=== PATIENT | male | born 1955 | race Caucasian/White ===

== ENCOUNTER 2018-11-16 04:01 | Inpatient (IN) | payer OTHER, MEDICARE ==
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
[2018-11-16] MEDS ORDERED: MORPHINE SULFATE 10 MG/ML INJ IV ONE (05:42)
[2018-11-16] MEDS ORDERED: ONDANSETRON HCL INJ/PF 4 MG/2 ML SDV IV ONE (05:48)
[2018-11-16] MEDS ORDERED: HYDROMORPHONE HCL INJ/PF 2 MG/ML AMPULE IV ONE (05:48)
[2018-11-16 07:07] LABS: ABSOLUTE BASOPHILS # (AUTO) 0.1 10^3/uL (0.0-0.2); ABSOLUTE EOSINOPHILS # (AUTO) 0.1 10^3/uL (0.0-0.6); ABSOLUTE LYMPHOCYTES (AUTO) 1.9 10^3/uL (0.5-4.7); ABSOLUTE MONOCYTES (AUTO) 0.9 10^3/uL (0.1-1.4); BASOPHILS % (AUTO) 0.7 % (0-2); EOSINOPHILS % (AUTO) 0.5 % (0-6); HEMATOCRIT 39.1 % (37.9-51.0); HEMOGLOBIN 13.1 g/dL (13.5-17.0); MEAN CORPUSCULAR HEMOGLOBIN 31.1 pg (27.0-33.4); MEAN CORPUSCULAR HGB CONC 33.5 g/dL (32.0-36.0); MEAN CORPUSCULAR VOLUME 93 fl (80-97); MONOCYTES % (AUTO) 7.7 % (3-13); PLATELET COUNT 221 10^3/uL (150-450); RED BLOOD COUNT 4.21 10^6/uL (4.35-5.55); RED CELL DISTRIBUTION WIDTH 15.4 % (11.5-14.0); SEGMENTED NEUTROPHILS % (AUTO) 75.1 % (42-78); TOTAL CELLS COUNTED % (AUTO) 100 %
[2018-11-16 07:28] LABS: ANION GAP 7 (5-19); BLOOD UREA NITROGEN 9 mg/dL (7-20); CALCIUM 9.2 mg/dL (8.4-10.2); CARBON DIOXIDE 27 mmol/L (22-30); CHLORIDE 104 mmol/L (98-107); GLUCOSE 99 mg/dL (75-110); POTASSIUM 4.3 mmol/L (3.6-5.0); SODIUM 137.5 mmol/L (137-145)
--- NOTE | 2018-11-16 08:22 | RADIOLOGY REPORT (SQ) ---
EXAM DESCRIPTION: CHEST SINGLE VIEW COMPLETED DATE/TIME: 11/16/2018 7:41 am REASON FOR STUDY: pre-op COMPARISON: None. EXAM PARAMETERS: NUMBER OF VIEWS: One view. TECHNIQUE: Single frontal radiographic view of the chest acquired. RADIATION DOSE: NA LIMITATIONS: None. FINDINGS: LUNGS AND PLEURA: No opacities, masses or pneumothorax. No pleural effusion. MEDIASTINUM AND HILAR STRUCTURES: No masses. Contour normal. HEART AND VASCULAR STRUCTURES: Heart normal in size. Normal vasculature. BONES: No acute findings. HARDWARE: None in the chest. OTHER: No other significant finding. IMPRESSION: NO ACUTE RADIOGRAPHIC FINDING IN THE CHEST. TECHNICAL DOCUMENTATION: JOB ID: [id number] 4134 [email or web address]- All Rights Reserved Reading location - IP/workstation name: [email or web address]
[2018-11-16] MEDS ORDERED: MORPHINE SULFATE 10 MG/ML INJ IV PRN (10:53)
[2018-11-16] MEDS ORDERED: ONDANSETRON HCL INJ/PF 4 MG/2 ML SDV IV PRN (12:51)
[2018-11-16] MEDS ORDERED: DEXTROSE 50%-WATER 25 GM/50 ML DISP.SYRIN IV PRN ×2 (12:53)
[2018-11-16] MEDS ORDERED: DEXTROSE 40% GEL 15 GM TUBE PO PRN ×2 (12:53)
[2018-11-16] MEDS ORDERED: GLUCAGON,HUMAN RECOMB 1 MG INJ SUBCUT PRN (12:53)
[2018-11-16] MEDS: OXYCODONE-ACETAMINOPHEN 5-325 MG TABLET PO PRN (13:36)
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
[2018-11-16] MEDS: HYDROMORPHONE HCL INJ/PF 2 MG/ML AMPULE IV PRN (21:25)
[2018-11-17] MEDS: HYDROMORPHONE HCL INJ/PF 2 MG/ML AMPULE IV PRN (05:25)
[2018-11-17] MEDS ORDERED: MIDAZOLAM 2 MG/2 ML INJ ONE (13:10)
[2018-11-17] MEDS ORDERED: HYDROMORPHONE HCL INJ/PF 2 MG/ML AMPULE ONE (13:10)
[2018-11-17] MEDS ORDERED: FENTANYL CITRATE INJ/PF 250 MCG/5 ML AMPULE ONE (13:10)
[2018-11-17] MEDS ORDERED: PROPOFOL INJ 200 MG/20 ML VIAL IV ONE (13:10)
[2018-11-17] MEDS ORDERED: BUPIVACAINE HCL 0.5 % INJ/PF 30 ML SDV ONE (13:30)
[2018-11-17] MEDS ORDERED: ACETAMINOPHEN 1,000 MG/100 ML RTUPB IV ONE ×2 (13:33→23:19)
[2018-11-17] MEDS ORDERED: ONDANSETRON HCL INJ/PF 4 MG/2 ML SDV ONE (13:33)
[2018-11-17] MEDS ORDERED: DEXAMETHASONE SOD PHOSPHATE INJ 4 MG/1 ML VIAL ONE (13:33)
[2018-11-17] MEDS ORDERED: CEFAZOLIN INJ 1 GM VIAL ONE (13:50)
[2018-11-17] MEDS ORDERED: DIPHENHYDRAMINE HCL 50 MG/ML VIAL IV PRN ×2 (14:33→17:19)
[2018-11-17] MEDS ORDERED: FENTANYL CITRATE INJ/PF 100 MCG/2 ML AMPUL IV PRN ×3 (14:33)
[2018-11-17] MEDS ORDERED: PROMETHAZINE HCL INJ 25 MG/1 ML VIAL IV PRN (14:33)
[2018-11-17] MEDS ORDERED: ALBUTEROL SULFATE 0.083% NEB 2.5 MG/3 ML AMPUL NEB PRN (17:17)
[2018-11-17] MEDS ORDERED: ONDANSETRON 4 MG TAB.RAPDIS PO PRN (17:19)
[2018-11-17] MEDS ORDERED: MEPERIDINE HCL/PF INJ 25 MG/1 ML DISP.SYRIN ONE (17:22)
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
[2018-11-17] MEDS ORDERED: CEFAZOLIN 2 GM/D5W RTU 2 GM/50 ML RTUPB IV SCH (18:00)
[2018-11-17] MEDS ORDERED: LAMOTRIGINE 100 MG TABLET PO SCH (18:00)
[2018-11-17] MEDS ORDERED: LEVETIRACETAM 500 MG TABLET PO SCH (18:00)
[2018-11-17] MEDS ORDERED: TOPIRAMATE 100 MG TABLET PO SCH (18:00)
[2018-11-17] MEDS: CELECOXIB 200 MG CAPSULE PO SCH (18:36)
[2018-11-17] MEDS: KETOROLAC TROMETHAMINE INJ/PF 30 MG/1 ML SDV IV SCH (18:58)
[2018-11-17] MEDS ORDERED: LEVOTHYROXINE SODIUM 0.075 MG TABLET ONE (19:09)
[2018-11-17] MEDS ORDERED: ATORVASTATIN CALCIUM 10 MG TABLET ONE (19:09)
[2018-11-17] MEDS ORDERED: LEVETIRACETAM 500 MG TABLET PO ONE (19:09)
[2018-11-17] MEDS ORDERED: LAMOTRIGINE 100 MG TABLET ONE (19:11)
[2018-11-17] MEDS ORDERED: TOPIRAMATE 100 MG TABLET ONE (19:11)
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
--- NOTE | 2018-11-17 21:54 | EKG REPORT ---
SEVERITY:- OTHERWISE NORMAL ECG - SINUS RHYTHM LEFT AXIS DEVIATION : Confirmed by: Ron Odell MD 17-Nov-2018 21:53:29
[2018-11-17] MEDS: OXYCODONE HCL SR 10 MG TABLET PO SCH (22:44)
[2018-11-17] MEDS: LEVETIRACETAM 500 MG TABLET PO SCH (23:07)
[2018-11-17] MEDS: LAMOTRIGINE 100 MG TABLET PO SCH (23:07)
[2018-11-17] MEDS: ATORVASTATIN CALCIUM 10 MG TABLET PO SCH (23:08)
[2018-11-17] MEDS: MELATONIN 5 MG TABLET PO SCH (23:08)
[2018-11-17] MEDS: TOPIRAMATE 100 MG TABLET PO SCH (23:09)
[2018-11-18] MEDS ORDERED: CEFAZOLIN INJ 1 GM VIAL ONE (00:41)
[2018-11-18] MEDS: KETOROLAC TROMETHAMINE INJ/PF 30 MG/1 ML SDV IV SCH ×5 (00:49→23:10)
[2018-11-18] MEDS: CEFAZOLIN 2 GM/D5W RTU 2 GM/50 ML RTUPB IV SCH ×4 (01:00→12:07)
[2018-11-18] MEDS ORDERED: LEVOTHYROXINE SODIUM 0.075 MG TABLET PO SCH (06:00)
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
--- NOTE | 2018-11-18 09:16 | PDOC PROGRESS REPORT ---
Subjective Progress Note for:: 11/18/18 Subjective:: Patient lying in bed comfortably. States pain is tolerable. There was concern of decreased temperature in his left hand which started about an hour ago. Patient does not noticed increased pain in his left hand. Does have some numbness and tingling. Denies chest pain or shortness of breath. Reason For Visit: RIGHT TIBIAL FRACTURE,LEFT DISTAL RADIAL FRACTURE Physical Exam Vital Signs: Temp Pulse Resp BP Pulse Ox 99.1 F 94 16 105/59 L 96 11/18/18 07:49 11/18/18 07:49 11/18/18 07:49 11/18/18 07:49 11/18/18 07:49 Intake & Output 11/17/18 11/18/18 11/19/18 06:59 06:59 06:59 Intake Total 3600 Output Total 1450 1725 Balance -1450 1875 Weight 64.4 kg 64.4 kg Musculoskeletal exam: PRESENT: other - Left upper extremity: Splint intact. Cap refill less than 2 seconds throughout all digits notable improvement after splint loosened. Normal skin turgor. Full IP/MP joint range of motion. EPL/FPL intact. Hypoesthesias on the distal tip. No pain with passive stretch. Compartments soft and compressible. Right lower extremity: Cast intact. Intact flexion extension of the toes. Cap refill less than 2 seconds. No pain with passive stretch. Results Laboratory Results: 11/16/18 06:55 11/16/18 06:55 Impressions: Ankle X-Ray 11/16/18 04:14 IMPRESSION: Comminuted distal tibia fracture. Questionable involvement of the posterior malleolus copyright 2010 [employer]- All Rights Reserved Forearm X-Ray 11/16/18 04:14 IMPRESSION: Comminuted distal radius and ulna fractures copyright 2010 [employer]- All Rights Reserved Hand X-Ray 11/16/18 04:14 IMPRESSION: Comminuted fractures of the wrist. Associated soft tissue swelling copyright 2010 [employer]- All Rights Reserved Head CT 11/16/18 04:14 IMPRESSION: Unremarkable unenhanced CT brain TECHNICAL DOCUMENTATION: Quality ID # 436: Final reports with documentation of one or more dose reduction techniques (e.g., Automated exposure control, adjustment of the mA and/or kV according to patient size, use of iterative reconstruction technique) copyright 2010 [email or web address]- All Rights Reserved Chest X-Ray 11/16/18 06:00 IMPRESSION: NO ACUTE RADIOGRAPHIC FINDING IN THE CHEST. Fluoroscopy 11/17/18 13:30 IMPRESSION: IMAGE(S) OBTAINED DURING PROCEDURE. Wrist X-Ray 11/17/18 13:30 IMPRESSION: IMAGE(S) OBTAINED DURING PROCEDURE. Assessment & Plan - Diagnosis (1) Distal radius fracture, left Qualifiers: Encounter type: initial encounter Fracture type: closed Fracture morphology: unspecified fracture morphology Qualified Code(s): S52.502A - Unspecified fracture of the lower end of left radius, initial encounter for closed fracture Is this a current diagnosis for this admission?: Yes Plan: Patient status post ORIF left comminuted intra-articular distal radius fracture. There was some notable swelling of the hand with loosening of the splint this has improved. There is no sign or symptoms of compartment syndrome or vascular compromise. He is to continue aggressive elevation of both the left upper extremity and right lower extremity. Unfortunately given patient's independent living status he will require further physical therapy including a platform walker will also attempt to set him up for home health possibly through discharge planning. Anticipate discharge possible home 11/19/18. (2) Tibial fracture Qualifiers: Encounter type: initial encounter Tibia location: shaft Fracture type: closed Fracture morphology: comminuted Fracture alignment: nondisplaced Laterality: right Qualified Code(s): S82.254A - Nondisplaced comminuted fracture of shaft of right tibia, initial encounter for closed fracture Is this a current diagnosis for this admission?: Yes
[2018-11-18] MEDS ORDERED: (PENDING PHARMACY ID) (Umeclidinium Brm/Vilanterol Tr [Anoro Ellipta 62.5-25 Mcg Inh] 1 PU IH SCH (10:00)
[2018-11-18] MEDS: CELECOXIB 200 MG CAPSULE PO SCH ×2 (10:22→10:31)
[2018-11-18] MEDS: LEVETIRACETAM 500 MG TABLET PO SCH ×2 (10:23→21:00)
[2018-11-18] MEDS: LAMOTRIGINE 100 MG TABLET PO SCH ×2 (10:23→21:00)
[2018-11-18] MEDS: FUROSEMIDE 40 MG TABLET PO SCH (10:25)
[2018-11-18] MEDS: OXYCODONE HCL SR 10 MG TABLET PO SCH ×2 (10:25→21:00)
[2018-11-18] MEDS: TOPIRAMATE 100 MG TABLET PO SCH ×2 (10:27→21:02)
[2018-11-18] MEDS: RIVAROXABAN 10 MG TABLET PO SCH (10:27)
[2018-11-18] MEDS: CHOLECALCIFEROL (D3) 1,000 UNIT TABLET PO SCH (10:27)
[2018-11-18] MEDS: OXYCODONE-ACETAMINOPHEN 5-325 MG TABLET PO PRN ×2 (13:27→19:31)
[2018-11-18] MEDS: CEPHALEXIN 500 MG CAPSULE PO SCH ×3 (14:52→20:59)
[2018-11-18] MEDS: ATORVASTATIN CALCIUM 10 MG TABLET PO SCH (20:59)
[2018-11-18] MEDS: MELATONIN 5 MG TABLET PO SCH (21:00)
[2018-11-19] MEDS: OXYCODONE-ACETAMINOPHEN 5-325 MG TABLET PO PRN ×2 (01:59→20:15)
[2018-11-19] MEDS: KETOROLAC TROMETHAMINE INJ/PF 30 MG/1 ML SDV IV SCH ×2 (05:04→11:14)
[2018-11-19] MEDS: LEVOTHYROXINE SODIUM 0.075 MG TABLET PO SCH (05:11)
[2018-11-19 06:27] LABS: HEMATOCRIT 36.4 % (37.9-51.0); HEMOGLOBIN 12.4 g/dL (13.5-17.0); MEAN CORPUSCULAR HEMOGLOBIN 31.6 pg (27.0-33.4); MEAN CORPUSCULAR HGB CONC 34.2 g/dL (32.0-36.0); MEAN CORPUSCULAR VOLUME 93 fl (80-97); PLATELET COUNT 241 10^3/uL (150-450); RED BLOOD COUNT 3.94 10^6/uL (4.35-5.55); RED CELL DISTRIBUTION WIDTH 14.9 % (11.5-14.0); WHITE BLOOD COUNT 10.6 10^3/uL (4.0-10.5)
--- NOTE | 2018-11-19 08:07 | PDOC PROGRESS REPORT ---
Subjective Progress Note for:: 11/19/18 Subjective:: Patient lying in bed comfortably. No issues overnight. Pain currently controlled. Reason For Visit: RIGHT TIBIAL FRACTURE,LEFT DISTAL RADIAL FRACTURE Physical Exam Vital Signs: Temp Pulse Resp BP Pulse Ox 98.6 F 87 16 106/64 96 11/18/18 22:56 11/18/18 22:56 11/18/18 22:56 11/18/18 22:56 11/18/18 22:56 Intake & Output 11/18/18 11/19/18 11/20/18 06:59 06:59 06:59 Intake Total 3600 1400 Output Total 1722 3425 Balance 187 -2024 Weight 64.4 kg 64.3 kg Musculoskeletal exam: PRESENT: other - Left upper extremity: Splint intact. Bruising throughout the digits unchanged. Cap refill less than 2 seconds. Intact sensation to light touch. Intact IP/MP joint flexion. Compartments soft and compressible no sign of compartment syndrome. No pain with passive stretch. Right upper extremity: Swelling after infiltration is notably improved. Compartments soft and compressible. Full hand range of motion. Two-point discrimination 9 mm ring and small finger unchanged compared to preoperative examination. Wound along the elbow dressing intact with mild serosanguineous drainage Right lower extremity: Cast intact. Intact flexion/extension of the toes. Cap refill less than 2 seconds. No pain with passive stretch. Results Laboratory Results: 11/19/18 06:00 11/16/18 06:55 11/19/18 06:00 WBC 10.6 H RBC 3.94 L Hgb 12.4 L Hct 36.4 L MCV 93 MCH 31.6 MCHC 34.2 RDW 14.9 H Plt Count 241 Impressions: Ankle X-Ray 11/16/18 04:14 IMPRESSION: Comminuted distal tibia fracture. Questionable involvement of the posterior malleolus copyright 2010 [employer]- All Rights Reserved Forearm X-Ray 11/16/18 04:14 IMPRESSION: Comminuted distal radius and ulna fractures copyright 2010 [employer]- All Rights Reserved Hand X-Ray 11/16/18 04:14 IMPRESSION: Comminuted fractures of the wrist. Associated soft tissue swelling copyright 2010 [employer]- All Rights Reserved Head CT 11/16/18 04:14 IMPRESSION: Unremarkable unenhanced CT brain TECHNICAL DOCUMENTATION: Quality ID # 436: Final reports with documentation of one or more dose reduction techniques (e.g., Automated exposure control, adjustment of the mA and/or kV according to patient size, use of iterative reconstruction technique) copyright 2011 [employer]- All Rights Reserved Chest X-Ray 11/16/18 06:00 IMPRESSION: NO ACUTE RADIOGRAPHIC FINDING IN THE CHEST. Fluoroscopy 11/17/18 13:30 IMPRESSION: IMAGE(S) OBTAINED DURING PROCEDURE. Wrist X-Ray 11/17/18 13:30 IMPRESSION: IMAGE(S) OBTAINED DURING PROCEDURE. Assessment & Plan - Diagnosis (1) Distal radius fracture, left Qualifiers: Encounter type: initial encounter Fracture type: closed Fracture morphology: unspecified fracture morphology Qualified Code(s): S52.502A - Unspecified fracture of the lower end of left radius, initial encounter for closed fracture Is this a current diagnosis for this admission?: Yes Plan: Patient status post ORIF left comminuted intra-articular distal radius fracture. 1. Nonweightbearing left upper extremity and right lower extremity patient will require a platform walker. 2. Pain control with p.o. oxycodone 3.Xarelto for DVT prophylaxis 4. Given patient's home situation he will likely require retirement facility which he has agreed to. Patient stable for discharge once bed available (2) Tibial fracture Qualifiers: Encounter type: initial encounter Tibia location: shaft Fracture type: closed Fracture morphology: comminuted Fracture alignment: nondisplaced Laterality: right Qualified Code(s): S82.254A - Nondisplaced comminuted fracture of shaft of right tibia, initial encounter for closed fracture Is this a current diagnosis for this admission?: Yes
[2018-11-19] MEDS: LAMOTRIGINE 100 MG TABLET PO SCH ×2 (09:04→23:03)
[2018-11-19] MEDS: OXYCODONE HCL SR 10 MG TABLET PO SCH (09:05)
[2018-11-19] MEDS: CEPHALEXIN 500 MG CAPSULE PO SCH ×4 (09:05→23:03)
[2018-11-19] MEDS: LEVETIRACETAM 500 MG TABLET PO SCH ×2 (09:05→23:03)
[2018-11-19] MEDS: CHOLECALCIFEROL (D3) 1,000 UNIT TABLET PO SCH (09:05)
[2018-11-19] MEDS: FUROSEMIDE 40 MG TABLET PO SCH (09:06)
[2018-11-19] MEDS: RIVAROXABAN 10 MG TABLET PO SCH (09:06)
[2018-11-19] MEDS: TOPIRAMATE 100 MG TABLET PO SCH ×2 (09:07→23:03)
[2018-11-19] MEDS: ATORVASTATIN CALCIUM 10 MG TABLET PO SCH (23:02)
[2018-11-19] MEDS: MELATONIN 5 MG TABLET PO SCH (23:03)
[2018-11-20] MEDS: OXYCODONE-ACETAMINOPHEN 5-325 MG TABLET PO PRN ×2 (02:35→15:49)
[2018-11-20] MEDS: LEVOTHYROXINE SODIUM 0.075 MG TABLET PO SCH (06:28)
[2018-11-20 06:38] LABS: HEMATOCRIT 39.6 % (37.9-51.0); HEMOGLOBIN 13.5 g/dL (13.5-17.0); MEAN CORPUSCULAR HEMOGLOBIN 31.6 pg (27.0-33.4); MEAN CORPUSCULAR HGB CONC 34.1 g/dL (32.0-36.0); MEAN CORPUSCULAR VOLUME 93 fl (80-97); PLATELET COUNT 303 10^3/uL (150-450); RED BLOOD COUNT 4.27 10^6/uL (4.35-5.55); RED CELL DISTRIBUTION WIDTH 14.8 % (11.5-14.0); WHITE BLOOD COUNT 9.7 10^3/uL (4.0-10.5)
--- NOTE | 2018-11-20 09:10 | PDOC PROGRESS REPORT ---
Subjective Progress Note for:: 11/20/18 Subjective:: Patient lying in bed comfortably. No issues overnight. Pain currently controlled. Patient is anxious to go home and now prefers home with home health versus rehab but prefers either if he is able to get out of the hospital today. Reason For Visit: RIGHT TIBIAL FRACTURE,LEFT DISTAL RADIAL FRACTURE Physical Exam Vital Signs: Temp Pulse Resp BP Pulse Ox 98.0 F 75 18 102/68 99 11/20/18 08:00 11/20/18 08:00 11/20/18 08:00 11/20/18 08:00 11/20/18 08:00 Intake & Output 11/19/18 11/20/18 11/21/18 06:59 06:59 06:59 Intake Total 1400 1620 Output Total 3425 5450 Balance -2024 Weight 64.3 kg 64.3 kg General appearance: PRESENT: no acute distress, well-developed, well-nourished Head exam: PRESENT: atraumatic, normocephalic Eye exam: PRESENT: conjunctiva pink, EOMI, PERRLA. ABSENT: scleral icterus Ear exam: PRESENT: normal external ear exam Mouth exam: PRESENT: moist, tongue midline Neck exam: PRESENT: full ROM. ABSENT: carotid bruit, JVD, lymphadenopathy, thyromegaly Cardiovascular exam: PRESENT: RRR. ABSENT: diastolic murmur, rubs, systolic murmur Pulses: PRESENT: normal dorsalis pedis pul, +2 pedal pulses bilateral Vascular exam: PRESENT: normal capillary refill GI/Abdominal exam: PRESENT: normal bowel sounds, soft. ABSENT: distended, guarding, mass, organolmegaly, rebound, tenderness Rectal exam: PRESENT: deferred Musculoskeletal exam: PRESENT: other - Left upper extremity: Ecchymosis and bruising throughout the digits. Warm to touch. Cap refill less than 2 seconds. Intact sensation to light touch. IP/MP joint flexion/extension intact. EPL/FPL intact. No pain with passive stretch. Right lower extremity cast intact. Intact flexion/extension of the toes. Cap refill less than 2 seconds. No sensory deficits. No pain with passive stretch. Right elbow: Serosanguineous drainage along the dressing no erythema. Full elbow range of motion. Neurological exam: PRESENT: alert, awake, oriented to person, oriented to place, oriented to time, oriented to situation, CN II-XII grossly intact. ABSENT: motor sensory deficit Psychiatric exam: PRESENT: appropriate affect, normal mood. ABSENT: homicidal ideation, suicidal ideation Skin exam: PRESENT: dry, intact, warm. ABSENT: cyanosis, rash Results Laboratory Results: 11/20/18 06:08 11/16/18 06:55 11/20/18 06:08 WBC 9.7 RBC 4.27 L Hgb 13.5 Hct 39.6 MCV 93 MCH 31.6 MCHC 34.1 RDW 14.8 H Plt Count 303 Impressions: Ankle X-Ray 11/16/18 04:14 IMPRESSION: Comminuted distal tibia fracture. Questionable involvement of the posterior malleolus copyright 2010 [employer]- All Rights Reserved Forearm X-Ray 11/16/18 04:14 IMPRESSION: Comminuted distal radius and ulna fractures copyright 2010 [employer] All Rights Reserved Hand X-Ray 11/16/18 04:14 IMPRESSION: Comminuted fractures of the wrist. Associated soft tissue swelling copyright 2010 [employer]- All Rights Reserved Head CT 11/16/18 04:14 IMPRESSION: Unremarkable unenhanced CT brain TECHNICAL DOCUMENTATION: Quality ID # 436: Final reports with documentation of one or more dose reduction techniques (e.g., Automated exposure control, adjustment of the mA and/or kV according to patient size, use of iterative reconstruction technique) copyright 2010 [employer]- All Rights Reserved Chest X-Ray 11/16/18 06:00 IMPRESSION: NO ACUTE RADIOGRAPHIC FINDING IN THE CHEST. Fluoroscopy 11/17/18 13:30 IMPRESSION: IMAGE(S) OBTAINED DURING PROCEDURE. Wrist X-Ray 11/17/18 13:30 IMPRESSION: IMAGE(S) OBTAINED DURING PROCEDURE. Assessment & Plan - Diagnosis (1) Distal radius fracture, left Qualifiers: Encounter type: initial encounter Fracture type: closed Fracture morphology: unspecified fracture morphology Qualified Code(s): S52.502A - Uns pecified fracture of the lower end of left radius, initial encounter for closed fracture Is this a current diagnosis for this admission?: Yes Plan: Patient status post ORIF left comminuted intra-articular distal radius fracture. 1. Nonweightbearing left upper extremity and right lower extremity patient will require a platform walker. 2. Pain control with p.o. oxycodone 3.Xarelto for DVT prophylaxis 4. Given patient's home situation he will likely require penitentiary facility versus home health. Patient is orthopedically stable when discharge planning finalized. (2) Tibial fracture Qualifiers: Encounter type: initial encounter Tibia location: shaft Fracture type: closed Fracture morphology: comminuted Fracture alignment: nondisplaced Laterality: right Qualified Code(s): S82.254A - Nondisplaced comminuted fracture of shaft of right tibia, initial encounter for closed fracture Is this a current diagnosis for this admission?: Yes
[2018-11-20] MEDS: CEPHALEXIN 500 MG CAPSULE PO SCH ×4 (10:25→22:23)
[2018-11-20] MEDS: LEVETIRACETAM 500 MG TABLET PO SCH ×2 (10:25→22:23)
[2018-11-20] MEDS: CHOLECALCIFEROL (D3) 1,000 UNIT TABLET PO SCH (10:25)
[2018-11-20] MEDS: TOPIRAMATE 100 MG TABLET PO SCH ×2 (10:26→22:23)
[2018-11-20] MEDS: LAMOTRIGINE 100 MG TABLET PO SCH ×2 (10:26→22:23)
[2018-11-20] MEDS: RIVAROXABAN 10 MG TABLET PO SCH (10:26)
[2018-11-20] MEDS: FUROSEMIDE 40 MG TABLET PO SCH (10:27)
[2018-11-20] MEDS: ATORVASTATIN CALCIUM 10 MG TABLET PO SCH (22:22)
[2018-11-20] MEDS: MELATONIN 5 MG TABLET PO SCH (22:23)
[2018-11-21] MEDS: LEVOTHYROXINE SODIUM 0.075 MG TABLET PO SCH (06:34)
[2018-11-21] MEDS: OXYCODONE-ACETAMINOPHEN 5-325 MG TABLET PO PRN ×3 (07:41→21:23)
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
[2018-11-21] MEDS: CHOLECALCIFEROL (D3) 1,000 UNIT TABLET PO SCH (10:05)
[2018-11-21] MEDS: TOPIRAMATE 100 MG TABLET PO SCH ×2 (10:05→21:19)
[2018-11-21] MEDS: CEPHALEXIN 500 MG CAPSULE PO SCH ×4 (10:05→21:20)
[2018-11-21] MEDS: LEVETIRACETAM 500 MG TABLET PO SCH ×2 (10:05→21:19)
[2018-11-21] MEDS: FUROSEMIDE 40 MG TABLET PO SCH (10:05)
[2018-11-21] MEDS: RIVAROXABAN 10 MG TABLET PO SCH (10:05)
[2018-11-21] MEDS: LAMOTRIGINE 100 MG TABLET PO SCH ×2 (10:05→21:19)
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
[2018-11-21] MEDS: MELATONIN 5 MG TABLET PO SCH (21:19)
[2018-11-21] MEDS: ATORVASTATIN CALCIUM 10 MG TABLET PO SCH (21:19)
[2018-11-22] MEDS: LEVOTHYROXINE SODIUM 0.075 MG TABLET PO SCH (06:09)
[2018-11-22 09:01] VITALS: BP 98/72
[2018-11-22] MEDS: LAMOTRIGINE 100 MG TABLET PO SCH (09:42)
[2018-11-22] MEDS: LEVETIRACETAM 500 MG TABLET PO SCH (09:42)
[2018-11-22] MEDS: CEPHALEXIN 500 MG CAPSULE PO SCH (09:42)
[2018-11-22] MEDS: FUROSEMIDE 40 MG TABLET PO SCH (09:45)
[2018-11-22] MEDS: TOPIRAMATE 100 MG TABLET PO SCH (09:46)
[2018-11-22] MEDS: RIVAROXABAN 10 MG TABLET PO SCH (09:49)
[2018-11-22] MEDS: CHOLECALCIFEROL (D3) 1,000 UNIT TABLET PO SCH (09:49)
== END 2018-11-22 10:08 | DRG 512 ==
LOC: ER 04:01 → EH 06:10 → 2N 08:08
PROVIDERS: ADMIT Orthopaedic Surgery; ATTEND Orthopaedic Surgery
PROC: 2W3QX2Z Immobilization of Right Lower Leg using Cast (ICD-10-PCS; 2018-11-17)
PROC: 0PSJ04Z Reposition Left Radius with Internal Fixation Device, Open Approach (ICD-10-PCS; principal; 2018-11-17 11:45)
DX: S52.502A Unspecified fracture of the lower end of left radius, initial encounter for closed fracture (principal); S52.602A Unspecified fracture of lower end of left ulna, initial encounter for closed fracture; S82.301A Unspecified fracture of lower end of right tibia, initial encounter for closed fracture; S01.81XA Laceration without foreign body of other part of head, initial encounter; G40.909 Epilepsy, unspecified, not intractable, without status epilepticus; F31.9 Bipolar disorder, unspecified; F17.210 Nicotine dependence, cigarettes, uncomplicated; V49.49XA Driver injured in collision with other motor vehicles in traffic accident, initial encounter; Y93.89 Activity, other specified; Y92.488 Other paved roadways as the place of occurrence of the external cause; Z60.2 Problems related to living alone; Z79.51 Long term (current) use of inhaled steroids; Z79.899 Other long term (current) drug therapy
CPT/HCPCS: 01830; 36415; 70450; 71045; 80048; 80177; 85025; 85027; 93005; 93010; 94799; 96374; 96375; 99285; C1713; C1769; C9359; J0131; J0690; J1100; J1170; J1885; J2175; J2250; J2270; J2405; J2704; J3010; J3490